=== PATIENT | female | born 1980 | race Caucasian/White ===

== ENCOUNTER 2016-09-09 10:16 | Emergency (ER) | payer SELFPAY ==
[2016-09-09 10:55] VITALS: BP 99/69; PULSE 80; RESP 16; TEMP 98; O2SAT 98
[2016-09-09 11:29] VITALS: BMI 19.9
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
== END 2016-09-09 12:41 | disposition home or self-care (01) ==
LOC: H.ER 10:16
DX: S99.921A Unspecified injury of right foot, initial encounter (principal); Y92.410 Unspecified street and highway as the place of occurrence of the external cause; V19.40XA Pedal cycle driver injured in collision with unspecified motor vehicles in traffic accident, initial encounter; Y93.55 Activity, bike riding